=== PATIENT | female | born 1950 | race Caucasian/White ===

== ENCOUNTER 2018-11-01 09:41 | Inpatient (IN) ==
[2018-11-01] MEDS ORDERED: NS 500 ML IV ONE (10:03)
[2018-11-01] MEDS ORDERED: DUONEB (A & A) INH ONE (10:03)
--- NOTE | 2018-11-01 10:19 | Diag Imaging Result Doc PS360 ---
CHEST-2 VIEWS - 11/01/2018 INDICATION: cough, weakness COMPARISON: 10/16/2016 FINDINGS: The lungs are normally expanded and clear. Heart size and mediastinal contours are normal. No pneumothorax or pleural effusion. IMPRESSION: Negative exam. Electronically signed by Matt Segovia 11/01/2018 10:16 AM
[2018-11-01 10:53] LABS: BASO# 0.01 X1000 (0.0-0.2); BASO% 0.1 % (0.0-0.8); EOS# 0.01 X1000 (0.0-0.7); EOS% 0.1 % (0.0-10.0); HEMATOCRIT 34.4 % (37.0-47.0); HEMOGLOBIN 10.9 g/dL (12.0-16.0); LYMPH# 1.11 X1000 (1.2-3.4); LYMPH% 14.5 % (20.5-51.1); MCH 27.7 PG (27-31); MCHC 31.7 g/dL (33-37); MCV 87.5 FL (81-99); MONO# 0.75 X1000 (0.11-0.59); MONO% 9.8 % (1.7-9.3); MPV 10.4 FL (7.4-10.4); NEUT# 5.77 X1000 (1.4-6.5); NEUT% 75.5 % (42.2-75.2); PLT 282 X1000 (130-400); RBC 3.93 XMIL (4.2-5.4); RDW 13.9 % (11.5-14.5); WBC 7.65 X1000 (4.8-10.8)
[2018-11-01 11:16] LABS: AGAP 19; ALB/GLOB RATIO 1.5; ALBUMIN 4.1 g/dL (3.5-5.0); ALKALINE PHOSPHATASE 118 U/L (32-104); BUN 18 mg/dL (8-22); CALCIUM 9.1 mg/dL (8.8-10.2); CHLORIDE 101 mmol/L (98-107); CK PROFILE 64 U/L (24-173); COSMO 282; CREATININE 0.9 mg/dL (0.5-0.9); ESTIMATED GFR > 60; GLUCOSE 141 mg/dL (70-104); GOT 30 U/L (10-30); GPT 27 U/L (10-36); POTASSIUM 3.4 mmol/L (3.5-5.1); SODIUM 139 mmol/L (136-145); TCO2 19 mmol/L (25-35); TOTAL BILIRUBIN 0.17 mg/dL (0.20-1.00); TOTAL PROTEIN 6.8 g/dL (6.3-8.3)
[2018-11-01] MEDS ORDERED: KLOR-CON PO ONE (11:17)
[2018-11-01] MEDS ORDERED: NS 1,000 ML IV ONE ×2 (11:26→13:00)
[2018-11-01] MEDS ORDERED: DUONEB (A & A) INH SCH (11:30)
--- NOTE | 2018-11-01 11:30 | PROVIDER DOCUMENTATION ---
This chart was entered by Basia Morales Scribe, acting as scribe for Tylor Robertson PA. HPI-General Adult - General Chief Complaint: Flu Symptoms Stated Complaint: FLU SYMPTOMS Time Seen by Provider: 11/01/18 09:55 Source: patient Allergies/Adverse Reactions: Patient Allergies Allergy/AdvReac Type Severity Reaction Status Date / Time codeine Allergy Mild NAUSEA Verified 10/30/13 10:17 morphine Allergy Mild ITCHING Verified 10/30/13 10:17 Home Medications: Home Medication List Medication Instructions Recorded Confirmed Last Taken Type Ascorbic Acid [Vitamin C] 500 mg PO DAILY 10/30/13 10/30/13 10/30/13 07:00 History Calcium Citrate 1,400 mg PO DAILY 10/30/13 10/30/13 10/29/13 20:00 History Cholecalciferol (Vitamin D3) 800 unit PO DAILY 10/30/13 10/30/13 10/29/13 07:00 History [Vitamin D] Cyanocobalamin/Folic Acid [Vitamin 1 each PO DAILY 10/30/13 10/30/13 10/29/13 07 :00 History [id number] Acid Tablet] Cyclobenzaprine HCl [Flexeril] 10 mg PO QHS 10/30/13 10/30/13 10/29/13 20:00 History Hydrocodone/Acetaminophen [Lortab 1 each PO Q6H PRN 10/30/13 10/30/13 10/28/13 History 10-500 Tablet] Magnesium 250 mg PO DAILY 10/30/13 10/30/13 10/29/13 07:00 History Multivitamin [Multivitamins] 1 each PO DAILY 10/30/13 10/30/13 10/30/13 07:00 History Nebivolol HCl [Bystolic] 10 mg PO DAILY 10/30/13 10/30/13 10/30/13 07:00 History - History of Present Illness -Gen Adult Nature of Presenting Problems: 68 y/o female presents to ED with worsening weakness, productive cough, and SOB onset 3 days ago. Pt reports she has hx chronic weakness, afib, myasthenia gravis. Pt states her has had similar sx recently. Pt is alert and oriented. Location of Pain/Injury: reports: generalized Pain Radiation: reports: no radiation Quality of Pain: reports: none Severity: reports: mild, moderate Onset/Duration: reports: 3 days ago Timing: reports: still present, getting worse Context/Activities at Onset: reports: none Modifying Factors: improves with: nothing Associated Symptoms: reports: cough (productive), shortness of breath, weakness (worsening) Similar Symptoms Previously?: No Recently seen or treated by another doctor?: No Review of Systems - Adult - REVIEW OF SYSTEMS - ADULT Constitutional: denies: chills, fever Eyes: reports: no symptoms reported Ears, Nose, Mouth & Throat: reports: no symptoms reported Cardiovascular: denies: chest pain, palpitations Respiratory: reports: cough (productive), shortness of breath Gastrointestinal: denies: abdominal pain, diarrhea, nausea, vomiting Genitourinary: reports: no symptoms reported Musculoskeletal: denies: back pain, joint pain Integumentary: reports: no symptoms reported Neurological: reports: other (worsening weakness). denies: dizziness/vertigo, seizure Psychiatric: reports: no symptoms reported Endocrine: reports: no symptoms reported Hematologic/Lymphatic: reports: no symptoms reported Allergic/Immunologic: reports: no symptoms reported All Other Systems: Reviewed and Negative Past History - Adult - PAST MEDICAL HISTORY-ADULT Review of Records: reports: Old Records Reviewed, Nursing Assessment Review, Medications Reviewed Major Childhood Illnesses: reports: denies history Cardiovascular: reports: A-Fib, HTN Respiratory: reports: asthma, sleep apnea Neurological: reports: other (chronic weakness; myasthenia gravis) - PRIOR SURGERIES/PROCEDURES Surgical/Procedure History: reports: bowel surgery (colon resection), orthopedic (extremity) (R shoulder), back/neck (lower back x2), other (trigger release) - IMMUNIZATION STATUS Childhood Immunizations: See Nurse Assessment Flu Vaccine: See Nurse Assessment - FAMILY HISTORY Family History: reviewed, not pertinent - SOCIAL HISTORY Smoking: non-smoker Substance Use: none/never Alcohol Use Frequency: never Living Situation: family Physical Exam-General - PHYSICAL EXAM-ADULT Initial Vital Signs Reviewed: Yes - CONSTITUTIONAL General Appearance: appears well, alert, no apparent distress - EYES Eyes: PERRL/EOMI, pink conjunctivae - HEAD, EARS, NOSE, MOUTH & THROAT HENMT: normocephalic/atraumatic, moist mucous membranes, normal ENT inspection - NECK Neck: non-tender, full range of motion - RESPIRATORY Respiratory: chest non-tender, normal breath sounds, rhonchi, wheezing (mild) - CARDIOVASCULAR Cardiovascular: normal peripheral pulses, regular rate, rhythm - GASTROINTESTINAL (ABDOMEN) Abdominal Exam: normal bowel sounds, non tender, soft - MUSCULOSKELETAL Back Exam: normal inspection, no CVA tenderness Extremity: normal range of motion, non-tender, normal gait - SKIN Integumentary: normal color, warm/dry - NEUROLOGIC Neurologic: grossly normal - PSYCHIATRIC Psych/Mental Status: normal mood/affect, normal thought content, normal thought process Progress - PLAN OF CARE/RESULTS Progress/Plan/Lab Results: Vital Signs - 8 hr 11/01/18 09:49 Temperature 98.0 F Pulse Rate 108 H Respiratory Rate 22 Blood Pressure 137/66 O2 Sat by Pulse Oximetry 96 Orders Category Date Time Status INFLUENZA SCREEN A/B Stat Lab 11/01/18 09:57 Ordered Influenza A is positive. Influenza B is negative. Laboratory Tests 11/01/18 11/01/18 10:20 10:20 WBC 7.65 RBC 3.93 L Hgb 10.9 L Hct 34.4 L MCV 87.5 MCH 27.7 MCHC 31.7 L RDW Std Deviation 13.9 Plt Count 282 MPV 10.4 Immature Gran % (Auto) 0.0 Neut % (Auto) 75.5 H Lymph % (Auto) 14.5 L [place] % (Auto) 9.8 H Eos % (Auto) 0.1 Baso % (Auto) 0.1 Immature Gran # (Auto) 0.00 Neut # (Auto) 5.77 Lymph # (Auto) 1.11 L [place] # (Auto) 0.75 H Eos # (Auto) 0.01 Baso # (Auto) 0.01 Plasma Lactate 2.5 H Pt has influenza A. She is very weak and does report that she has not been eating/drinking appropriately due to fatigue and is having difficulty getting around her home. Pt's lactate is elevated but I believe that this is due to the flu and not a bacterial infection given the WBC and normal vital signs at present. Will discuss c her PCP for admission. Dr. Knapp informed of case and is in agreement c this plan. Result Diagrams: 11/01/18 10:20 11/01/18 10:20 - EKG 1 Time of EKG reading by physician:: 10:03 EKG Read and Signed by:: Joseph Knapp EKG Interpretation (*Must complete 3 of following elements*): Abnormal Rate: 97 Rhythm: NSR [place]: normal QRS: normal PA Interval: normal ST Wave: non-specific ST changes - XRAY 1 XRAY Study: Chest Impression: Normal (FINDINGS: The lungs are normally expanded and clear. Heart size and mediastinal contours are normal. No pneumothorax or pleural effusion. IMPRESSION: Negative exam. Electronically signed by Matt Segovia 11/01/2018 10:16 AM) - CONSULTS/PCP/HOSPITALIST Notification #1 *Consult/PCP/Hospitalist*: Dr. Vargas Time Discussed: 11:25 Reason/Comments: Influenza A; weakness Consult Disposition: Admit Departure - Departure Date of Disposition Decision: 11/01/18 Time of Disposition Decision: 11:26 DIAGNOSIS: Influenza A, Weakness Disposition: ADMITTED INPATIENT 09 Certified Medical Emergency: Emergent Condition: Stable Additional Freetext Instructions: ED Follow Up Instructions: You have been treated by a care provider in the Emergency Department. These instructions are being provided to you so you can have an understanding of how to care for yourself upon discharge. Upon discharge from the Emergency Department, you are responsible for making arrangements for follow-up care by a physician of your choice. Take all prescribed medications as directed. Return to the Emergency Department immediately for any new or worsening symptoms. You may call the Physician Referral phone number at [phone] to obtain a list of Physicians who are taking new patients. Referrals and Follow-Ups: Tiffany Boggs MD [Primary Care Provider] - Discharge Education: Influenza, Adult, [id number] - Critical Care Note This patient required my direct & personal management of CC.: No Attestation - Physician/ JOHN Attestation Patient care was provided by Advanced Practice Provider:: Yes Advanced Practice Provider:: Tylor Robertson Advanced Practice Provider documentation review:: The Mid-level provider documentation, treatment plan and medical decision making was reviewed by the physician who agrees with all treatment and medical decision making by the P. The physician spent face to face time with patient:: No Advanced Practice Provider documentation review:: Supervising physician onsite and consulted in the evaluation and care of this patient. The physician did not have a face to face encounter with the patient. This chart was documented by the indicated scribe, (Andrew,Basia F, Scribe) and accurately reflects the services I performed and decisions made by , Tylor Robertson PA, as attested by the provider's signature.
[2018-11-01 11:39] LABS: INR 1.46; PROTIME 18.8 Seconds (11.0-16.0)
[2018-11-01 11:40] LABS: PTT 48.6 Seconds (22.3-41.8)
[2018-11-01 12:10] LABS: URINE SOURCE CLEAN CATCH
[2018-11-01 12:16] LABS: BILIRUBIN URINE NEGATIVE (NEGATIVE); BLOOD URINE NEGATIVE (NEGATIVE); COLOR YELLOW; GLUCOSE URINE NEGATIVE (NEGATIVE); KETONE URINE TRACE mg/dL (NEGATIVE); LEUKOCYTES URINE LARGE (NEGATIVE); NITRITE URINE NEGATIVE (NEGATIVE); PROTEIN URINE 50 mg/dL (NEGATIVE); SP GRAVITY URINE 1.023; TURBIDITY URINE CLEAR (CLEAR); UROBILINOGEN URINE NORMAL (NORMAL)
[2018-11-01 12:17] LABS: UR EPITHELIAL CELLS >10 /HPF (<10); URINE BACTERIA NEGATIVE /HPF; URINE RBC <10 /HPF (<10); URINE WBC 20-40 /HPF (<10)
[2018-11-01] MEDS ORDERED: ROCEPHIN 1 GM in NS 50 ML IV ONE (13:00)
--- NOTE | 2018-11-01 13:02 | SEPSIS: TISSUE PERFUSION ASSMT ---
Sepsis: Tissue Perfusion Assmt - Physical Exam Assessment Date: 11/01/18 Time Assessment Initialized: 13:01 Vital Signs: Last Vital Signs Temp 98.0 F 11/01/18 09:49 Pulse 95 H 11/01/18 10:18 Resp 20 11/01/18 10:18 BP 137/66 11/01/18 09:49 Pulse Ox 96 11/01/18 10:18 Height 1.55 m Weight 83.915 kg Lung Sounds:: lungs clear Heart Sounds:: Regular Capillary Refill Time: Less Than 2 Seconds Peripheral Pulse Evaluation:: radial (R): 2+, radial (L): 2+, dorsalis-pedis (R) : 2+, dorsalis-pedis (L): 2+ Skin Exam:: pink, turgor good - Impression Impression:: Tissue Perfusion Adequate - Plan Plan:: No Change
[2018-11-01] MEDS: DUONEB (A & A) INH SCH (19:00)
[2018-11-01] MEDS: LOPRESSOR PO SCH (20:55)
[2018-11-01] MEDS: TYLENOL PO PRN (20:55)
[2018-11-01] MEDS: TAMIFLU PO SCH (20:55)
[2018-11-01] MEDS: FLEXERIL PO SCH (21:52)
--- NOTE | 2018-11-02 02:18 | HISTORY AND PHYSICAL ---
CHIEF COMPLAINT: Weakness. HISTORY OF PRESENT ILLNESS: This 68-year-old white female with multiple medical problems began to feel ill late afternoon. She stated that it began with fever up to 101, prostration, myalgias, mild sore throat, and a hacking cough. She had some hard shaking chills. For whatever reason, she did not contact her doctor on Saturday, but then showed up in the emergency room Saturday morning unannounced. There, she was found to have a urinary tract infection, as well as influenza type A. She is admitted for further treatment and workup. PAST MEDICAL HISTORY: 1. The patient recently had an ablation of atrial fibrillation, and was put on metoprolol as a rate control agent. She has been asymptomatic since that time. I do not believe she has followed up with Cardiology yet. 2. The patient is also under workup in [place] for myasthenia gravis due to ongoing weakness and other problems. This workup is incomplete. 3. Obesity. 4. Chronic gastritis. 5. Normal myocardial perfusion scan in April 2017. ALLERGIES: Morphine and codeine. She can take hydrocodone. FAMILY HISTORY: Noncontributory. SOCIAL HISTORY: The patient lives alone. She has the support of her daughter. She is a nonsmoker, and denies the use of alcohol. REVIEW OF SYSTEMS: Please see history of present illness. At the present time, the patient is just profoundly weak. She has suffered some palpitations. Her fever dissipated after 24 hours, but she still feels very sick and weak. She has not been eating or drinking well. She is barely able to limp around her house at the present time. She cannot gain her feet without assistance. She has a hacking cough, and she feels moderately short of breath. She states that she is wheezing. She denied any chest pain, other than the pain which occurs when she coughs. She has had no nausea, vomiting, or diarrhea. She denies any dysuria or change in urinary color or consistency. Her mental status has remained intact. No psychiatric symptoms. PHYSICAL EXAMINATION: GENERAL: The patient is an obese white female, in no acute distress. She has a slightly hoarse voice. She is alert, oriented, conversive, and appropriate. HEENT: The sclerae are anicteric. Oral mucosa is a reasonable level of hydration, and is normal in coloration. NECK: There are no carotid bruits, JVD. There is no palpable thyromegaly. LUNGS: Show bilateral end-expiratory wheezes, with [id number] air movement. She does not appear short of breath, and speaks in full sentences. I do not detect any focal crackles or rales. ABDOMEN: Protuberant, and difficult to examine. EXTREMITIES: Show no evidence of peripheral edema. NEUROLOGICAL: The patient's cranial nerves are intact by observation. I was not able to see her walk due to weakness. PSYCHOLOGICAL: The patient has normal mood and affect. LABORATORY STUDIES: White cell count 7.6, hematocrit 34. Potassium slightly low at 3.4. Glucose was 141. Urinalysis showed large leukocyte esterase and 20 to 40 white cells per high-power field. Flu A testing was positive. Blood and urine cultures are pending. ASSESSMENT AND PLAN: 1. The patient has 2 infectious processes, which could account for her prostration, fever, and overall weakness. First, she has a urinary tract infection. Although she is asymptomatic, the febrile response to the urinary tract infection could certainly weaken her. We have given her IV fluids. She was given Rocephin in the ER. Urine cultures are pending. The patient also has influenza A. She is just inside the 48-hour jez, and we will begin treatment with Tamiflu. This was discussed with the patient. 2. The patient's heart problems are not ischemic in origin, and she recently had an ablation. I told her that I was a bit reluctant to treat her with albuterol, given her heart irritability, but we will go about it very gingerly. We will continue her on her metoprolol for rate control and for blood pressure control. 3. The patient's expiratory wheezing could be related to influenza. We will continue with albuterol. She is already being treated with IV antibiotics and Tamiflu. 4. We are aware if the patient has difficulty, and is in workup for myasthenia gravis. I do not plan on ordering any definitive laboratory here, since this has already been done in [place], and we should have results on that sometime next week. 5. The patient's hypokalemia was noted. She was supplemented in the ER for that. It is noted her bicarb was slightly down. We will continue some IV fluids and monitor fluid status accordingly. cc: Oracio Vargas MD
[2018-11-02] MEDS: DUONEB (A & A) INH SCH ×2 (07:26→19:56)
[2018-11-02] MEDS ORDERED: ROCEPHIN 1 GM in NS 50 ML IV SCH ×2 (09:00→14:00)
[2018-11-02] MEDS: LOPRESSOR PO SCH ×2 (09:30→20:28)
[2018-11-02] MEDS: TAMIFLU PO SCH ×2 (09:30→20:28)
[2018-11-02] MEDS: MAGNESIUM GLUCONATE PO SCH (09:31)
--- NOTE | 2018-11-02 11:36 | PROGRESS NOTE ---
DATE: 11/02/2018 SUBJECTIVE: The patient states that she does not feel as weak as yesterday. She is still wheezing a little bit subjectively, but overall seems to have improved. She had no direct needs when questioned. OBJECTIVE: Vital Signs: Temperature 98.3, pulse of 100, blood pressure 152/63, 99% saturated on 2 L nasal cannula. General: The patient is lying in bed. She is awake, alert, conversive, and appropriate. Neck: Shows no JVD. Lungs: There are left upper lobe mild expiratory wheezes with good air movement. This is similar to yesterday's exam, but yesterday the wheezing was little more diffuse. Overall, this is an improvement since yesterday. Cardiovascular: Regular, approximately 90 beats per minute at the time of my examination. Extremities: No peripheral edema. LABORATORY: None were drawn today. ASSESSMENT AND PLAN: 1. The patient's infectious processes have been addressed with appropriate medications including IV antibiotics for her urinary tract infection and Tamiflu for influenza A. She is overall improved. 2. Atrial fibrillation has not recurred despite the use of beta 2 agonists. She has no palpitations and her heart rhythm has been stable. 3. Blood pressure has been adequately controlled. 4. The patient's expiratory wheezing continues but appears to be improved since yesterday. We will continue with albuterol twice daily. 5. The patient is taking Flexeril at night and I went ahead and wrote for that medication. In the larger picture of her workup for myasthenia gravis, it may be beneficial to discontinue the skeletal muscle relaxant while this is ongoing. 6. The patient's hypokalemia was noted and addressed yesterday. We will recheck a BMP in the morning, along with a CBC and lactate. 7. The patient continues to require inpatient care. I have advised her to sit in the chair and to get up and around the room with assistance today. Hopefully, she will be ready to go home in the next 24 to 48 hours. cc: Oracio Vargas MD
[2018-11-02] MEDS: TYLENOL PO PRN (13:42)
[2018-11-02] MEDS ORDERED: ROCEPHIN ONE (13:46)
[2018-11-02] MEDS: FLEXERIL PO SCH (20:29)
[2018-11-03 06:52] LABS: BASO# 0.01 X1000 (0.0-0.2); BASO% 0.3 % (0.0-0.8); EOS# 0.04 X1000 (0.0-0.7); EOS% 1.3 % (0.0-10.0); HEMATOCRIT 32.9 % (37.0-47.0); HEMOGLOBIN 10.2 g/dL (12.0-16.0); LYMPH# 1.63 X1000 (1.2-3.4); LYMPH% 53.8 % (20.5-51.1); MCH 27.9 PG (27-31); MCV 90.1 FL (81-99); MONO# 0.42 X1000 (0.11-0.59); MONO% 13.9 % (1.7-9.3); MPV 10.1 FL (7.4-10.4); NEUT# 0.93 X1000 (1.4-6.5); NEUT% 30.7 % (42.2-75.2); PLT 248 X1000 (130-400); RBC 3.65 XMIL (4.2-5.4); WBC 3.03 X1000 (4.8-10.8)
[2018-11-03 07:00] LABS: AGAP 11; BUN 13 mg/dL (8-22); CALCIUM 8.7 mg/dL (8.8-10.2); CHLORIDE 105 mmol/L (98-107); COSMO 282; CREATININE 0.8 mg/dL (0.5-0.9); ESTIMATED GFR > 60; GLUCOSE 102 mg/dL (70-104); POTASSIUM 3.6 mmol/L (3.5-5.1); SODIUM 141 mmol/L (136-145); TCO2 25 mmol/L (25-35)
[2018-11-03 08:01] VITALS: BP 136/59
[2018-11-03] MEDS: DUONEB (A & A) INH SCH (08:12)
[2018-11-03] MEDS: LOPRESSOR PO SCH (09:57)
--- NOTE | 2018-11-03 09:57 | Diag Imaging Result Doc PS360 ---
EXAM: CHEST-PORTABLE HISTORY: influenza TECHNIQUE: Chest single view COMPARISON: 11/01/2018 FINDINGS: The lungs are well expanded. The heart is not enlarged. The vessels are not distended. There are no infiltrates. No effusion identified. IMPRESSION: No pneumonia. Electronically signed by Yasmany Corey 11/03/2018 9:55 AM
[2018-11-03] MEDS: MAGNESIUM GLUCONATE PO SCH (09:58)
[2018-11-03] MEDS: TAMIFLU PO SCH (09:59)
--- NOTE | 2018-11-03 10:28 | EKG Report ---
Test Performed on : 11/01/2018 10:03:32 AM Test Reason : weakness, fatigue Blood Pressure : / mmHG Vent. Rate : 097 BPM Atrial Rate : 097 BPM P-R Int : 184 ms QRS Dur : 078 ms QT Int : 358 ms P-R-T Axes : 060 016 057 degrees QTc Int : 454 ms Normal sinus rhythm. Nonspecific ST and T wave abnormality Abnormal ECG No previous ECGs available Unconfirmed Result
[2018-11-03] MEDS ORDERED: TAMIFLU PO ONE (12:22)
== END 2018-11-03 14:29 | disposition home or self-care (01) | DRG 195 ==
LOC: ED 09:41 → EDIPHOLD 11:49 → 3N 14:38
PROVIDERS: ADMIT Internal Medicine; ATTEND Internal Medicine
CPT/HCPCS: 71010; 71020; 71045; 71046; 80048; 80053; 81001; 82550; 83605; 83735; 84484; 85025; 85610; 85730; 87040; 87088; 87275; 87276; 87804; 93005; 94640; 94761; 96365; 99285; A9270; J0696; J7030; J7040